=== PATIENT | male | born 1965 | race Caucasian/White ===

== ENCOUNTER 2021-04-27 20:06 | Inpatient (IN) | payer OTHER ==
[~2021-04-27] VITALS: Ht 175.3 cm; Wt 87.1 kg
[2021-04-27 20:06] VITALS: BP_SYST 134
[2021-04-27 20:53] LABS: HEMATOCRIT 22.6 % (36-54); HEMOGLOBIN 7.6 g/dL (14.0-18.0); MEAN CORPUSCULAR HEMOGLOBIN 31 pg (27-31); MEAN CORPUSCULAR HGB CONC 34 % (32-36); MEAN CORPUSCULAR VOLUME 91 fL (79.0-98.0); RED BLOOD CELL COUNT(AUTO) 2.49 MIL/uL (4.2-6.2); RED CELL DISTRIBUTION WIDTH 19.3 % (9.0-15.0); WHITE BLOOD COUNT (AUTO) 2.7 K/uL (4.8-10.8)
[2021-04-27 21:02] LABS: ANION GAP 7 (5-15); CALCIUM 7.5 mg/dL (8.4-11.0); CHLORIDE 106 mmol/L (98-107); CREATININE 1.46 mg/dL (0.55-1.30); GLUCOSE 266 mg/dL (70-99); SODIUM SERUM 137 mmol/L (136-145); UREA NITROGEN, BLOOD 28 mg/dL (8-21)
[2021-04-27 21:08] LABS: ALANINE AMINOTRANSFERASE 46 U/L (12-78); ALBUMIN 2.4 g/dL (3.4-4.8); ASPARTATE AMINOTRANSFERASE 48 U/L (10-37); TOTAL BILIRUBIN 1.3 mg/dL (0.0-1.0)
[2021-04-27 21:10] LABS: ACETAMINOPHEN < 1 ug/mL (1-30); ALCOHOL, BLOOD < 3 mg/dL (<10); GFR AFRICAN AMERICAN 64 mL/min (>90)
[2021-04-27 21:24] LABS: C-REACTIVE PROTEIN QUANT 0.9 mg/dL (0-0.5)
[2021-04-27 21:28] LABS: INR 1.1 (0.80-1.20); PROTHROMBIN TIME 11.6 SECS (9.5-12.5)
[2021-04-27 21:34] LABS: PLATELET COUNT (AUTO) 48 K/uL (130-430)
[2021-04-27] MEDS ORDERED: LACTULOSE 20 GM/30 ML UDC PO ONE (21:45)
[2021-04-27 21:55] LABS: BAND % (MANUAL) 2 % (0-6); BASOPHILS % (MANUAL) 0 % (0-2); EOSINOPHILS % (MANUAL) 1 % (0-7); LYMPHOCYTES % (MANUAL) 6 % (20-46); MONOCYTES % (MANUAL) 13 % (0-11)
[2021-04-27] MEDS ORDERED: DEXTROSE 50% JECT 50 ML DISP.SYRIN IVP PRN (22:15)
[2021-04-27] MEDS ORDERED: LORazepam 2 MG/ML VIAL IVP PRN (22:15)
[2021-04-27] MEDS ORDERED: DOCUSATE SODIUM 100 MG CAPSULE PO PRN (22:15)
[2021-04-27] MEDS ORDERED: POTASSIUM CHLORIDE 20 MEQ TAB.PRT.SR PO PRN (22:15)
[2021-04-27] MEDS ORDERED: ONDANSETRON HCL 4 MG/2 ML VIAL IVP PRN (22:15)
[2021-04-27] MEDS ORDERED: MAGNESIUM SULFATE 50 ML IV PRN (22:15)
[2021-04-27] MEDS ORDERED: MUPIROCIN 2% TOPICAL OINTMENT 22 GM NS PRN (22:15)
[2021-04-27] MEDS: LACTULOSE 20 GM/30 ML UDC PO SCH (22:15)
[2021-04-27] MEDS ORDERED: ZOLPIDEM TARTRATE 5 MG TABLET PO PRN (22:15)
[2021-04-27] MEDS ORDERED: MORPHINE 2 MG/ML INJ. SYRINGE IVP PRN (22:15)
[2021-04-27 22:16] LABS: ACETONE, SERUM NEGATIVE (NEGATIVE)
[2021-04-28 07:03] LABS: BASOPHILS % (AUTO) 0.4 % (0.0-2.0); EOSINOPHILS % (AUTO) 1.5 % (0.0-4.0); LYMPHOCYTES # (AUTO) 0.5 K/uL (1.0-5.5); MEAN CORPUSCULAR HEMOGLOBIN 30 pg (27-31); MEAN CORPUSCULAR HGB CONC 34 % (32-36); MEAN CORPUSCULAR VOLUME 90 fL (79.0-98.0); MONOCYTES # (AUTO) 0.6 K/uL (0.0-1.0); MONOCYTES % (AUTO) 23.2 % (1.7-9.3); NEUTROPHILS # (AUTO) 1.4 K/uL (1.8-7.7); NEUTROPHILS % (AUTO) 55.9 % (40.0-70.0); RED BLOOD CELL COUNT(AUTO) 2.31 MIL/uL (4.2-6.2); RED CELL DISTRIBUTION WIDTH 19.4 % (9.0-15.0); WHITE BLOOD COUNT (AUTO) 2.5 K/uL (4.8-10.8)
[2021-04-28 07:06] LABS: CALCIUM 7.3 mg/dL (8.4-11.0); CREATININE 1.04 mg/dL (0.55-1.30); POTASSIUM 3.7 mmol/L (3.5-5.1)
[2021-04-28] MEDS: LACTULOSE 20 GM/30 ML UDC PO SCH ×3 (09:00→20:59)
[2021-04-28 09:08] LABS: HEMATOCRIT 20.7 % (36-54)
[2021-04-28 11:30] LABS: PLATELET COUNT (AUTO) 43 K/uL (130-430)
[2021-04-28] MEDS ORDERED: INSULIN REGULAR, HUMAN 10 UNITS/0.1 ML INJ ONE (12:15)
[2021-04-28] MEDS: INSULIN LISPRO SLIDING SCALE 100 UNITS/ML VIAL (humaLOG) SUBCUT PRN ×3 (12:16→21:16)
[2021-04-28] MEDS ORDERED: INSULIN Lispro 100 UNITS/ML VIAL (humaLOG) ONE (12:17)
[2021-04-28] MEDS ORDERED: LACTULOSE 20 GM/30 ML UDC ONE (15:35)
[2021-04-28] MEDS ORDERED: INSU100V SQ (16:10)
[2021-04-28] MEDS ORDERED: NEU300 PO (16:10)
[2021-04-28] MEDS ORDERED: METF-834 PO (16:10)
[2021-04-28] MEDS ORDERED: INSU100V9 SQ (16:10)
[2021-04-28 16:22] VITALS: BP_SYST 117
[2021-04-28 20:00] VITALS: BP_SYST 137
[2021-04-29 00:09] VITALS: BP_SYST 100
[2021-04-29 07:13] LABS: CALCIUM 7.4 mg/dL (8.4-11.0); CREATININE 0.91 mg/dL (0.55-1.30); POTASSIUM 3.9 mmol/L (3.5-5.1)
[2021-04-29 07:50] LABS: BASOPHILS % (AUTO) 0.4 % (0.0-2.0); EOSINOPHILS # (AUTO) 0.1 K/uL (0.0-0.4); EOSINOPHILS % (AUTO) 4.4 % (0.0-4.0); HEMOGLOBIN 7.3 g/dL (14.0-18.0); LYMPHOCYTES # (AUTO) 0.5 K/uL (1.0-5.5); LYMPHOCYTES % (AUTO) 21.8 % (20.5-51.5); MEAN CORPUSCULAR HEMOGLOBIN 30 pg (27-31); MEAN CORPUSCULAR HGB CONC 33 % (32-36); MEAN CORPUSCULAR VOLUME 90 fL (79.0-98.0); MONOCYTES # (AUTO) 0.5 K/uL (0.0-1.0); MONOCYTES % (AUTO) 21.1 % (1.7-9.3); NEUTROPHILS # (AUTO) 1.1 K/uL (1.8-7.7); RED BLOOD CELL COUNT(AUTO) 2.46 MIL/uL (4.2-6.2); RED CELL DISTRIBUTION WIDTH 19.6 % (9.0-15.0); WHITE BLOOD COUNT (AUTO) 2.2 K/uL (4.8-10.8)
[2021-04-29] MEDS ORDERED: LACT10SO7 PO (08:25)
[2021-04-29 08:54] LABS: PLATELET COUNT (AUTO) 42 K/uL (130-430)
[2021-04-29 08:55] LABS: NEUTROPHILS % (AUTO) 52.3 % (40.0-70.0)
[2021-04-29] MEDS: LACTULOSE 20 GM/30 ML UDC PO SCH (09:00)
[2021-04-29 09:52] VITALS: BP_SYST 128
[2021-04-29 10:22] VITALS: BP_SYST 128
== END 2021-04-29 13:00 | disposition home or self-care (01) | DRG 441 ==
LOC: SED 20:06 → STU 22:03
PROVIDERS: ADMIT General Practice; ATTEND General Practice
DX: K72.90 Hepatic failure, unspecified without coma (principal); N17.0 Acute kidney failure with tubular necrosis; E44.0 Moderate protein-calorie malnutrition; D61.818 Other pancytopenia; K74.60 Unspecified cirrhosis of liver; E11.9 Type 2 diabetes mellitus without complications; Z20.822 Contact with and (suspected) exposure to COVID-19; K76.0 Fatty (change of) liver, not elsewhere classified; M17.12 Unilateral primary osteoarthritis, left knee; D64.9 Anemia, unspecified; Z91.19 Patient's noncompliance with other medical treatment and regimen; Z68.28 Body mass index [BMI] 28.0-28.9, adult
CPT/HCPCS: 36415; 70450-TC; 71045; 76376; 80048; 80053; 82009; 82140; 82550; 82962; 83036; 83605; 83735; 83880; 84484; 85007; 85025; 85027; 85610-TC; 85730-TC; 86140; 93005; 96372; 99285; G0378; G0480; G0481; G0482; J1815; J2270